=== PATIENT | female | born 1990 | race Two or more races ===

== ENCOUNTER → 2024-07-29 | Emergency (ER) | payer OTHER ==
[~2024-07-29] VITALS: Ht 167.6 cm; Wt 77.1 kg
[~2024-07-29] MED LIST: ACETAMINOPHEN 500 MG GEL..CAP PO ONE; DESPEC-DM TABL1 EACH PO; MOTRIN800 MG PO; PRENATAL1 TAB; SEPTRA DS TABLE1 TAB PO
[2024-07-29 22:48] VITALS: BP 127/85; O2SAT 99
[2024-07-30 00:18] LABS: BASO % 0.3 % (0.1-1.2); EOS # 0.08 (0.04-0.54); EOS % 0.8 % (0.7-7.0); HEMATOCRIT 33.4 % (34.1-44.9); HEMOGLOBIN 11.2 g/dL (11.2-15.7); LYMPH # 2.57 (1.18-3.74); LYMPH % 27.2 % (19.3-53.1); MEAN CORPUSCULAR HEMOGLOBIN 28.1 pg (25.6-32.2); MONO # 0.78 (0.24-0.82); MONO % 8.2 % (4.7-12.5); NEUT # 5.98 (1.56-6.13); NEUT % 63.3 % (34.0-71.1); PLATELET COUNT 286 K/uL (163-369); RED BLOOD COUNT 3.98 M/uL (3.93-5.22); RED CELL DISTRIBUTION WIDTH 13.4 % (11.6-14.4)
[2024-07-30 00:45] LABS: URINE APPEARANCE Clear; URINE BILIRRUBIN Negative (NEGATIVE); URINE BLOOD Large; URINE COLOR Orange; URINE GLUCOSE Negative (NEGATIVE); URINE KETONE Negative (NEGATIVE); URINE LEUKOCYTE Moderate; URINE NITRATE Negative; URINE PROTEIN 30 (NEGATIVE); URINE UROBILINOGEN 0.2 E.U./dl
[2024-07-30 00:49] LABS: URINE BACTERIA 512.8 uL (0.0-1933); URINE EPITHELIAL CELLS 15.9 uL (0.0-38.8); URINE RBC 264.4 uL (0.0-20.8)
[2024-07-30 01:19] LABS: URINE CAST 0.14 uL (0.0-1.40)
== END | disposition home or self-care (01) ==
LOC: ER 21:51
PROVIDERS: General Practice
DX: N93.8 Other specified abnormal uterine and vaginal bleeding (principal); Z88.8 Allergy status to other drugs, medicaments and biological substances